=== PATIENT | female | born 1990 | race African-American/Black ===

== ENCOUNTER 2022-07-15 11:36 | Observation (INO) | payer MEDICAID ==
[2022-07-15] MEDS ORDERED: Sodium Chloride 0.9% 1,000 ML IV ONE ×2 (12:49→15:58)
[2022-07-15] MEDS ORDERED: Ondansetron 4 MG/2 ML SDV IVPUSH ONE (12:49)
[2022-07-15 13:07] LABS: CORONAVIRUS COVID-19 NAA POSITIVE (NEGATIVE); INFLUENZA A NAA NEGATIVE (NEGATIVE); INFLUENZA B NAA NEGATIVE (NEGATIVE); RESPIRATORY SYNCYTIAL VIR NAA NEGATIVE (NEGATIVE)
[2022-07-15] MEDS ORDERED: Ketorolac 30 MG/ML SDV IVPUSH ONE ×2 (13:23→17:08)
[2022-07-15 13:46] LABS: CARBON DIOXIDE,CO2 24.4 mmol/L (21.0-32.0); POTASSIUM,K 3.7 mmol/L (3.5-5.1)
[2022-07-15] MEDS ORDERED: cefTRIAXone 1 GM in Sodium Chloride 0.9% 50 ML IV ONE (14:11)
[2022-07-15] MEDS ORDERED: Acetaminophen/Codeine 120-12 MG/5 ML Soln 5 ML UD Cup PO ONE (15:58)
[2022-07-15] MEDS ORDERED: Sodium Chloride 0.9% 2.5 ML Syringe FLUSH PRN (16:51)
[2022-07-15] MEDS ORDERED: Sodium Chloride 0.9% 10 ML Syringe FLUSH PRN (16:51)
[2022-07-15] MEDS ORDERED: 50% Dextrose in Water 50 ML Syringe IVPUSH PRN (16:54)
[2022-07-15] MEDS ORDERED: Glucagon,Human Recombinant 1 MG Vial IM PRN (16:54)
[2022-07-15] MEDS ORDERED: Metoclopramide 10 MG/2 ML SDV IVPUSH ONE (17:08)
[2022-07-15] MEDS ORDERED: diphenhydrAMINE 50 MG/ML SDV IVPUSH ONE (17:08)
[2022-07-15] MEDS: Insulin Aspart 100 Units/ML 3 ML Pen SUBCUT SCH (17:43)
[2022-07-15] MEDS: Pantoprazole 40 MG in Sodium Chloride 0.9% 10 ML IVPUSH SCH (17:45)
[2022-07-15] MEDS: Lactated Ringers 1,000 ML IV SCH (18:42)
[2022-07-15] MEDS: Benzonatate 100 MG Cap PO PRN (18:43)
[2022-07-15] MEDS: Insulin Glargine,Hum.Rec.Anlog 100 UNIT/ML 3 ML Pen SUBCUT SCH (21:29)
[2022-07-15] MEDS: Acetaminophen 325 MG Tab PO PRN (21:45)
[2022-07-15] MEDS ORDERED: Ibuprofen 400 MG Tab PO PRN (23:00)
[2022-07-16] MEDS: Lactated Ringers 1,000 ML IV SCH ×3 (03:42→22:00)
[2022-07-16] MEDS: Acetaminophen 325 MG Tab PO PRN ×3 (03:42→16:48)
[2022-07-16 06:08] LABS: CARBON DIOXIDE,CO2 25.4 mmol/L (21.0-32.0); POTASSIUM,K 3.6 mmol/L (3.5-5.1)
[2022-07-16] MEDS: Insulin Aspart 100 Units/ML 3 ML Pen SUBCUT SCH ×3 (08:11→16:41)
[2022-07-16] MEDS: Ondansetron 4 MG/2 ML SDV IVPUSH PRN ×2 (08:22→16:49)
[2022-07-16] MEDS ORDERED: Sodium Chloride 0.65% Nasal Spray 45 ML Bottle NAS PRN (08:55)
[2022-07-16] MEDS ORDERED: Metoclopramide 10 MG/2 ML SDV IVPUSH PRN (10:29)
[2022-07-16] MEDS: Benzonatate 100 MG Cap PO PRN ×2 (10:33→20:59)
[2022-07-16] MEDS: PAXLOVID PO SCH ×2 (12:31→20:59)
[2022-07-16] MEDS: Pantoprazole 40 MG in Sodium Chloride 0.9% 10 ML IVPUSH SCH (16:49)
[2022-07-16] MEDS: Insulin Glargine,Hum.Rec.Anlog 100 UNIT/ML 3 ML Pen SUBCUT SCH (21:00)
[2022-07-17] MEDS: guaiFENesin/Dextromethorphan 100-10 MG/5 ML Soln 10 ML Cup PO PRN ×2 (00:01→08:00)
[2022-07-17 06:49] LABS: CARBON DIOXIDE,CO2 28.9 mmol/L (21.0-32.0); POTASSIUM,K 3.5 mmol/L (3.5-5.1)
[2022-07-17] MEDS: Insulin Aspart 100 Units/ML 3 ML Pen SUBCUT SCH ×2 (07:51→11:41)
[2022-07-17] MEDS: Acetaminophen 325 MG Tab PO PRN ×2 (07:59)
[2022-07-17] MEDS: Benzonatate 100 MG Cap PO PRN (08:00)
[2022-07-17] MEDS: Lactated Ringers 1,000 ML IV SCH (08:01)
[2022-07-17] MEDS: Ondansetron 4 MG/2 ML SDV IVPUSH PRN (08:17)
[2022-07-17] MEDS: PAXLOVID PO SCH (09:53)
== END 2022-07-17 15:00 | disposition home or self-care (01) ==
LOC: MW.ED 11:36 → MW.MS 15:59
PROVIDERS: ADMIT Internal Medicine; ATTEND Internal Medicine
DX: D72.829 Elevated white blood cell count, unspecified (principal); E11.9 Type 2 diabetes mellitus without complications; U07.1 COVID-19; R11.2 Nausea with vomiting, unspecified; E66.09 Other obesity due to excess calories; G43.909 Migraine, unspecified, not intractable, without status migrainosus; K29.50 Unspecified chronic gastritis without bleeding; K57.30 Diverticulosis of large intestine without perforation or abscess without bleeding; R16.0 Hepatomegaly, not elsewhere classified; K76.0 Fatty (change of) liver, not elsewhere classified; Z79.4 Long term (current) use of insulin; Z79.899 Other long term (current) drug therapy; Z88.6 Allergy status to analgesic agent; Z86.16 Personal history of COVID-19; Z20.822 Contact with and (suspected) exposure to COVID-19; Z68.32 Body mass index [BMI] 32.0-32.9, adult
CPT/HCPCS: 0241U; 36415; 71045; 74177; 80048; 80053; 81003; 82550; 82803; 82947; 83605; 83690; 83735; 84703; 85025; 85379; 86308; 87040; 87651; 96361; 96365; 96375; 96376; 99285; A9270; C9113; G0378; J0696; J1200; J1815; J1885; J2405; J2765; J3490; J7030; J7050; J7120; 99284

== ENCOUNTER 2022-10-15 09:25 | Emergency (ER) | payer MEDICAID ==
[2022-10-15] MEDS ORDERED: Ondansetron 4 MG Tab.DIS PO ONE (10:19)
[2022-10-15] MEDS ORDERED: Ketorolac 30 MG/ML SDV IM ONE (10:19)
== END 2022-10-15 11:33 | disposition home or self-care (01) ==
LOC: MW.ED 09:25
DX: A08.4 Viral intestinal infection, unspecified (principal); R51.9 Headache, unspecified; E11.9 Type 2 diabetes mellitus without complications; E66.9 Obesity, unspecified; Z68.34 Body mass index [BMI] 34.0-34.9, adult; Z88.8 Allergy status to other drugs, medicaments and biological substances; Z86.16 Personal history of COVID-19; Z79.4 Long term (current) use of insulin
CPT/HCPCS: 96372; 99283; A9270; J1885

== ENCOUNTER 2025-05-15 12:51 | Emergency (ER) | payer MEDICAID, OTHER | END 2025-05-15 14:33 | disposition home or self-care (01) | LOC: MW.ED 12:51 | DX: S93.401A Sprain of unspecified ligament of right ankle, initial encounter (principal); E11.9 Type 2 diabetes mellitus without complications; E66.9 Obesity, unspecified; Z86.16 Personal history of COVID-19; Z88.6 Allergy status to analgesic agent; Z79.4 Long term (current) use of insulin; Z79.899 Other long term (current) drug therapy; Z75.3 Unavailability and inaccessibility of health-care facilities; W10.9XXA Fall (on) (from) unspecified stairs and steps, initial encounter | CPT/HCPCS: 73562; 73610; 99283; A9270 ==